=== PATIENT | male | born 1955 | race Native Hawaiian/Other Pacific Islander ===

== ENCOUNTER → 2017-05-10 | Day surgery (SDC) | payer BC ==
[~2017-05-10] VITALS: Ht 177.8 cm; Wt 81.6 kg
[~2017-05-10] MED LIST: SIMVASTATIN20 MG PO
--- NOTE | ~2017-05-10 | O ---
[place], [place] OPERATIVE NOTE NAME: DAYSI GALEANA UNIT #: [id number] ROOM: DOCTOR: DAVID MENA MD BIRTHDATE: [birth year] DOS: GASTROENDOSCOPIC REPORT HISTORY OF PRESENT ILLNESS: A 61-year-old gentleman who has presented with chief complaint of colonic screening concern. ALLERGIES: No known medication. PAST MEDICAL HISTORY: Associated with hyperlipidemia. SOCIAL HISTORY: Nonsmoker and social alcohol consumer. FAMILY HISTORY: Noncontributory. PAST SURGICAL HISTORY: None. PROCEDURE: Today's procedure part colonoscopy. PREMEDICATION: Versed and Diprivan. SCOPE: Olympus forwarding colonoscope 10L video. REPORT: After putting the patient in left lateral position and application of lubricant to the scope, the scope was introduced. Thereafter, under direct visualization, I advanced through the length of colon without difficulty. Diverticulosis in the rare form was identified on the left side of the colon. Base of the cecum explored, appendiceal orifice identified, and ileocecal valve was defined. No acute pathology, no polypoid lesion seen. The patient extubated and tolerated the procedure well. IMPRESSION: Diverticulosis in the rare form, otherwise normal colonoscopic examination. PLAN: High fiber diet. ACTIVITY: Ad robby. FOLLOWUP: Routinely as an outpatient. Thank you very much indeed for your kind referral. Sincerely yours, [place], [place] OPERATIVE NOTE NAME: DAYSI GALEANA UNIT #: [id number] ROOM: DOCTOR: DAVID MENA MD BIRTHDATE: [birth year] DAVID MENA MD CM:OPRECORD:OPERATIVE NOTE 1126 1222 DAVID MENA MD 05/10/17 1223 interface
[2017-05-10 10:27] VITALS: BP 135/78
[2017-05-10 11:25] VITALS: BP 103/54
[2017-05-10 11:40] VITALS: BP 100/56
[2017-05-10 11:55] VITALS: BP 97/53
== END | disposition home or self-care (01) ==
LOC: SDC 04-21 14:00
DX: Z12.11 Encounter for screening for malignant neoplasm of colon (principal); K57.30 Diverticulosis of large intestine without perforation or abscess without bleeding; E78.5 Hyperlipidemia, unspecified

== ENCOUNTER → 2017-09-15 | Outpatient (CLI) | payer BC ==
[2017-09-15 09:42] LABS: BASO % 0.6 % (0.0-1.0); EOS # 0.2 10*3/uL (0.0-0.4); HEMATOCRIT 43.3 % (42.0-52.0); HEMOGLOBIN 14.4 g/dl (14.0-18.0); LYMPH # 2.3 10*3/uL (1.3-4.4); MEAN CELL VOLUME 88.9 fl (80.0-94.0); MEAN CORPUSCULAR HGB 29.6 pg (27.0-31.0); MEAN CORPUSCULAR HGB CONC 33.3 g/dl (33.0-37.0); MEAN PLATELET VOLUME 10.5 fl (9.6-12.3); MONO # 0.4 10*3/uL (0.1-1.0); MONO % 6.6 % (3.0-9.0); NEUT # 3.6 10*3/uL (2.3-7.9); NEUT % 54.3 % (47.0-73.0); PLATELET COUNT AUTOMATED 267 10*3/uL (130-400); RED BLOOD COUNT 4.87 10*6/uL (4.50-5.90); WHITE BLOOD COUNT 6.6 10*3/uL (4.8-10.8)
[2017-09-15 10:00] LABS: ALBUMIN 3.9 gm/dl (3.1-4.5); ALKALINE PHOSPHATASE 57 U/L (45-117); BUN 10 mg/dl (7-24); CHLORIDE 106 mmol/L (98-107); CHOLESTEROL 205 mg/dL (<200); CREATININE 0.96 mg/dL (0.70-1.30); FREE T4 1.09 ng/dl (0.76-1.46); HDL CHOLESTEROL 62 mg/dl (40-60); LDL CHOLESTEROL 122 mg/dL (9-159); POTASSIUM 3.6 mmol/L (3.5-5.1); SGOT/AST 14 IU/L (3-35); SGPT/ALT 32 U/L (12-78); SODIUM 142 mmol/L (136-145); TRIGLYCERIDES 105 mg/dl (<150); VLDL CHOLESTEROL 21 mg/dL (6-40)
[2017-09-15 12:32] LABS: VITAMIN D, 25-HYDROXY 19.5 ng/mL (30-100)
== END | disposition home or self-care (01) ==
LOC: LAB 09:13
PROVIDERS: Internal Medicine
DX: Z12.5 Encounter for screening for malignant neoplasm of prostate (principal); Z13.220 Encounter for screening for lipoid disorders; Z13.21 Encounter for screening for nutritional disorder; Z13.1 Encounter for screening for diabetes mellitus; R53.81 Other malaise; E55.9 Vitamin D deficiency, unspecified; E78.2 Mixed hyperlipidemia; E11.9 Type 2 diabetes mellitus without complications

== ENCOUNTER 2020-02-11 20:14 | Emergency (ER) | payer OTHER ==
[~2020-02-11] VITALS: Ht 175.2 cm; Wt 81.6 kg
[2020-02-11] MEDS ORDERED: AUGMENTIN 875-875 MG PO (20:45)
[2020-02-11] MEDS ORDERED: FLOMAX0.4 MG PO (20:45)
[2020-02-11] MEDS ORDERED: ATORVASTATIN CA20 M1 PO (20:46)
[2020-02-11 20:54] LABS: BASO % 0.2 % (0.0-1.0); EOS # 0.1 10*3/uL (0.0-0.4); EOS % 0.4 % (1.0-4.0); HEMATOCRIT 39.6 % (42.0-52.0); LYMPH # 1.5 10*3/uL (1.3-4.4); LYMPH % 9.3 % (27.0-41.0); MEAN CORPUSCULAR HGB 30.5 pg (27.0-31.0); MEAN CORPUSCULAR HGB CONC 33.8 g/dl (33.0-37.0); MEAN PLATELET VOLUME 10.1 fl (9.6-12.3); MONO # 1.1 10*3/uL (0.1-1.0); NEUT # 13.3 10*3/uL (2.3-7.9); NEUT % 82.5 % (47.0-73.0); PLATELET COUNT AUTOMATED 251 10*3/uL (130-400); RED CELL DISTRI WIDTH 12.4 % (0-14.5); WHITE BLOOD COUNT 16.1 10*3/uL (4.8-10.8)
[2020-02-11 21:13] LABS: ALBUMIN 3.1 gm/dl (3.1-4.5); ALKALINE PHOSPHATASE 80 U/L (45-117); BUN 10 mg/dl (7-24); CHLORIDE 96 mmol/L (98-107); CHOLESTEROL 190 mg/dL (<200); CREATININE 0.81 mg/dL (0.70-1.30); HDL CHOLESTEROL 60 mg/dl (40-60); LDL CHOLESTEROL 118 mg/dL (9-159); POTASSIUM 3.2 mmol/L (3.5-5.1); SGOT/AST 38 IU/L (3-35); SGPT/ALT 75 U/L (12-78); SODIUM 130 mmol/L (136-145); TOTAL PROTEIN 7.5 gm/dL (6.4-8.2); TRIGLYCERIDES 61 mg/dl (<150); VLDL CHOLESTEROL 12 mg/dL (6-40)
[2020-02-11 21:38] LABS: BILIRUBIN NEGATIVE (NEGATIVE); BLOOD 3+ (NEGATIVE); CLARITY CLEAR (CLEAR); COLOR YELLOW (YELLOW); GLUCOSE NEGATIVE (NEGATIVE); KETONE 1+ (NEGATIVE); LEUKO ESTERASE TRACE (NEGATIVE); NITRITE NEGATIVE (NEGATIVE); SPECIFIC GRAVITY 1.015 (1.005-1.030); UROBILINOGEN 0.2 E.U./dl (0.2-1.0); WBC 0-2 wbc/hpf (0-5)
[2020-02-11] MEDS ORDERED: POTASSIUM CHLO10 ME5 PO (21:56)
== END 2020-02-11 22:02 | disposition home or self-care (01) ==
LOC: ED 20:14
PROVIDERS: Emergency Medicine; Internal Medicine
DX: N40.1 Benign prostatic hyperplasia with lower urinary tract symptoms (principal); N13.8 Other obstructive and reflux uropathy; R97.20 Elevated prostate specific antigen [PSA]; E87.6 Hypokalemia; E87.1 Hypo-osmolality and hyponatremia; R33.9 Retention of urine, unspecified; Z79.2 Long term (current) use of antibiotics; Z79.899 Other long term (current) drug therapy

== ENCOUNTER → 2020-02-18 | Outpatient (CLI) | payer OTHER ==
[~2020-02-18] MED LIST changes: +ATORVASTATIN CA20 M1 PO; +AUGMENTIN 875-875 MG PO; +FLOMAX0.4 MG PO; +POTASSIUM CHLO10 ME5 PO
== END | disposition home or self-care (01) ==
LOC: CT 09:24
DX: K80.20 Calculus of gallbladder without cholecystitis without obstruction (principal); N40.0 Benign prostatic hyperplasia without lower urinary tract symptoms; K42.9 Umbilical hernia without obstruction or gangrene; K76.9 Liver disease, unspecified; I70.0 Atherosclerosis of aorta; I70.8 Atherosclerosis of other arteries; M47.814 Spondylosis without myelopathy or radiculopathy, thoracic region; M47.816 Spondylosis without myelopathy or radiculopathy, lumbar region; R33.9 Retention of urine, unspecified

== ENCOUNTER → 2023-07-24 | Outpatient (CLI) | payer OTHER, MEDICARE ==
[~2023-07-24] MED LIST changes: +CEFDINIR300 MG PO; +DOXYCYCLINE MO100 MG PO; +ELIQUIS5 M1 PO; +FLECAINIDE ACET50 M1 PO; +LIPITOR40 MG PO; +Synthroid,Levo25 MCG PO; +TOPCARE OMEPRAZ20 MG PO; +TOPROL XL25 MG PO
== END | disposition home or self-care (01) ==
LOC: RAD 14:01
PROVIDERS: ATTEND Internal Medicine
DX: J18.9 Pneumonia, unspecified organism (principal)

== ENCOUNTER → 2023-10-10 | Outpatient (CLI) | payer OTHER, MEDICARE | END | disposition home or self-care (01) | LOC: CT 10-06 14:00 | PROVIDERS: ATTEND Internal Medicine | DX: I25.10 Atherosclerotic heart disease of native coronary artery without angina pectoris (principal); R22.9 Localized swelling, mass and lump, unspecified; K80.20 Calculus of gallbladder without cholecystitis without obstruction; K44.9 Diaphragmatic hernia without obstruction or gangrene ==

== ENCOUNTER → 2023-11-01 | Outpatient (CLI) | payer OTHER, MEDICARE | END | disposition home or self-care (01) | LOC: RAD 10:42 | PROVIDERS: ATTEND Internal Medicine Critical Care Medicine | DX: R91.8 Other nonspecific abnormal finding of lung field (principal); G47.33 Obstructive sleep apnea (adult) (pediatric); Z68.27 Body mass index [BMI] 27.0-27.9, adult ==

== ENCOUNTER → 2024-09-23 | Outpatient (CLI) | payer OTHER, MEDICARE | END | disposition home or self-care (01) | LOC: RAD 12:18 | PROVIDERS: ATTEND Internal Medicine | DX: R05.9 Cough, unspecified (principal) ==